=== PATIENT | male | born 1990 | race American Indian/Alaskan Native ===

== ENCOUNTER 2018-01-29 11:55 | Emergency (ER) | payer BC ==
[2018-01-29 12:05] VITALS: BMI 21.4
[2018-01-29 12:10] VITALS: RESP 16; TEMP 98
--- NOTE | 2018-01-29 12:25 | C.PDOC ---
History Of Present Illness 28-YEAR-OLD MALE, PRESENTS TO THE EMERGENCY DEPARTMENT S/P RECURRENT SYNCOPAL EPISODE. PATIENT STATES HE WAS DOING TYPICAL MORNING ROUTINE. STANDING AND WAITING FOR THE TRAIN. PT DEVELOPED LIGHT HEADEDNESS FOR 1-2 MINUTES, FOLLOWED BY A SYNCOPAL EPISODE, PROMPTING VISIT. PT NOTES A POSSIBLE SCALP LACERATION TO THE BACK OF HIS HEAD. PT HAS HAD PRIOR VISITS TO ED FOR SAME COMPLAINT BUT DENIES ANY PMD OR CARDIOLOGY FOLLOW-UP. Time Seen by Provider: 01/29/18 12:12 Chief Complaint (Nursing): Syncope History Per: Patient History/Exam Limitations: no limitations Current Symptoms Are (Timing): Still Present Past Medical History Reviewed: Historical Data, Nursing Documentation, Vital Signs Vital Signs: Last Vital Signs Temp 98.0 F 01/29/18 11:57 Pulse 79 01/29/18 14:39 Resp 16 01/29/18 14:39 BP 120/60 01/29/18 14:39 Pulse Ox 97 01/29/18 14:39 - Medical History PMH: Anemia Family History: States: No Known Family Hx - Social History Hx Alcohol Use: No Hx Substance Use: No - Immunization History Hx Tetanus Toxoid Vaccination: No Hx Influenza Vaccination: No Hx Pneumococcal Vaccination: No Review Of Systems Constitutional: Negative for: Fever, Chills Cardiovascular: Positive for: Other (Syncope). Negative for: Chest Pain, Palpitations, Edema Respiratory: Negative for: Cough, Shortness of Breath Gastrointestinal: Negative for: Nausea, Abdominal Pain Musculoskeletal: Negative for: Neck Pain, Back Pain Skin: Negative for: Rash Neurological: Negative for: Weakness, Numbness, Headache, Dizziness Physical Exam - Physical Exam Appears: Non-toxic, No Acute Distress Skin: Normal Color, Warm, Dry, No Rash Head: Normacephalic, Abrasion (posterior scalp), Laceration Eye(s): bilateral: Normal Inspection, PERRL, EOMI Nose: Normal Oral Mucosa: Moist Lips: Normal Appearing Neck: Normal ROM, No Step Off Deformity, Supple Cardiovascular: Rhythm Regular, No Murmur Respiratory: Normal Breath Sounds, No Accessory Muscle Use Gastrointestinal/Abdominal: Soft, No Tenderness Back: Normal Inspection Extremity: Normal ROM, No Deformity, No Swelling Neurological/Psych: Oriented x3, Normal Speech ED Course And Treatment - Laboratory Results Result Diagrams: 01/29/18 12:40 01/29/18 12:40 ECG: Interpreted By Me ECG Rhythm: Sinus Bradycardia ECG Interpretation: Normal Rate From EC O2 Sat by Pulse Oximetry: 96 (RA) Pulse Ox Interpretation: Normal Laceration - Laceration Repair No standard instances Wound Length (In cm): 2 Description Of Wound: Linear Wound Cleansed With: Betadine, Sterile Saline Wound Examination: Irrigated With Saline, No FB With Wound Exploration Wound Closure: [place] (1) Wound Complexity: Simple Progress - Re-Evaluation Re-evaluation Note: 01/29/18 12:57 EXAM UNCH INITIAL. VSS. PENDING CT. PT ADVISED NEED FOR LAC REPAIR W 1-2 KEIRA. OFFERED LOCAL ANESTHESIA BUT REFUSING AT THIS TIME. CONSENTS TO LAC REPAIR. 01/29/18 14:34 The patient declines admission to the hospital and wishes to leave the Emergency Department. This action is against my medical advice. This decision was made with informed refusal. The patient was told that admission to the hospital is necessary. Explanation of the reasons why were discussed. The risks of leaving were explained to the patient and include, but are not limited to, worsening of known or currently unknown conditions, permanent disability and from undiagnosed or untreated conditions. The patient has the capacity to make this informed decision and understands my explanation of the current medical problem and risks of leaving. The patient voluntarily accepts these risks and signed an AMA form documenting our conversation. The patient was given the opportunity to ask questions and reconsider. The patient was encouraged to return to the Emergency Department at any time for further care. - Data Reviewed Data Reviewed: Lab, Diagnostic imaging, EKG Disposition Counseled Patient/Family Regarding: Studies Performed, Diagnosis, Need For Followup - Disposition Referrals: [facility] [Outside] [facility] [Outside] [facility] [Other] Disposition: AGAINST MEDICAL ADVICE Disposition Time: 14:28 Condition: GOOD Instructions: Closed Head Injury (DC), Laceration Repair With Keira (DC), Syncope (Fainting) (DC), Leaving Against Medical Advice Forms: [facility] (German) - Clinical Impression Clinical Impression: Syncope, Scalp laceration - Scribe Statement The provider has reviewed the documentation as recorded by the Scribe (Devi Zamora) All medical record entries made by the Scribe were at my direction and personally dictated by me. I have reviewed the chart and agree that the record accurately reflects my personal performance of the history, physical exam, medical decision making, and the department course for this patient. I have also personally directed, reviewed, and agree with the discharge instructions and disposition.
[2018-01-29] MEDS ORDERED: Tetanus/Diphtheria Toxoids 0.5 ml Syringe IM ONE ×2 (12:26→14:24)
[2018-01-29 12:43] LABS: BASO # 0.1 K/uL (0.0-0.2); EOS # 0.1 K/uL (0.0-0.7); EOS % 1.2 % (0.0-4.0); HEMOGLOBIN 13.7 g/dL (12.0-18.0); LYMPH # 1.9 K/uL (1.0-4.3); LYMPH % 29.1 % (20.0-40.0); MEAN CORPUSCULAR HEMOGLOBIN 23.2 pg (27.0-31.0); MEAN CORPUSCULAR HGB CONC 33.2 g/dL (33.0-37.0); MEAN PLATELET VOLUME 7.9 fL (7.2-11.7); MONO # 0.6 K/uL (0.0-0.8); MONO % 8.5 % (0.0-10.0); NEUT % 60.2 % (50.0-75.0); NRBC % 0.1 % (0.0-2.0); RBC 5.87 Mil/uL (4.40-5.90); RED CELL DISTRIBUTION WIDTH 13.8 % (11.5-14.5); WHITE BLOOD COUNT 6.6 K/uL (4.8-10.8)
[2018-01-29 12:57] LABS: ALB/GLOB RATIO 1.4 (1.0-2.1); ALBUMIN 4.4 g/dL (3.5-5.0); ALT/SGPT 37 U/L (21-72); AST/SGOT 39 U/L (17-59); BLOOD UREA NITROGEN 17 mg/dL (9-20); CALCIUM 9.6 mg/dl (8.6-10.4); GFR AFRICAN-AMERICAN > 60; GFR NON-AFRICAN AMERICAN > 60
--- NOTE | 2018-01-29 13:37 | RAD ---
Chest x-ray two views History: Syncope. Comparison: None available. Findings: No focal infiltrate or effusion. Heart size within normal limits. Impression: No focal infiltrate or effusion .
--- NOTE | 2018-01-29 14:08 | CT ---
PROCEDURE: CT HEAD WITHOUT CONTRAST. HISTORY: SYNCOPE, TRAUMA COMPARISON: None available. TECHNIQUE: Axial computed tomography images were obtained through the head/brain without intravenous contrast. Radiation dose: Total exam DLP = 931.59 mGy-cm. This CT exam was performed using one or more of the following dose reduction techniques: Automated exposure control, adjustment of the mA and/or kV according to patient size, and/or use of iterative reconstruction technique. FINDINGS: HEMORRHAGE: No intracranial hemorrhage. BRAIN: No mass effect or edema. No atrophy or chronic microvascular ischemic changes. VENTRICLES: Unremarkable. No hydrocephalus. CALVARIUM: No calvarial fracture. Surgical modesta are seen at the left parietal vertex. PARANASAL SINUSES: Unremarkable as visualized. No significant inflammatory changes. MASTOID AIR CELLS: Unremarkable as visualized. No inflammatory changes. OTHER FINDINGS: None. IMPRESSION: No intracranial hemorrhage.
[2018-01-29 14:40] VITALS: BP 120/60; PULSE 79
[2018-01-29 18:09] VITALS: O2SAT 96
--- NOTE | 2018-02-01 18:34 | CARD ---
APPROVED REPORT EKG Measurement Heart [id number] <Conclusion> Sinus bradycardia Incomplete RBBB Possible Right ventricular hypertrophy Abnormal ECG
== END 2018-01-29 14:40 | disposition left against medical advice (07) ==
LOC: C.ER 11:55
DX: S01.01XA Laceration without foreign body of scalp, initial encounter (principal); X58.XXXA Exposure to other specified factors, initial encounter; Y92.522 Railway station as the place of occurrence of the external cause; R55 Syncope and collapse